=== PATIENT | male | born 1935 | race Caucasian/White ===

== ENCOUNTER 2016-11-17 12:51 | Emergency (ER) | payer MEDICARE, OTHER ==
[2016-11-17 13:02] VITALS: BP 162/80
--- NOTE | 2016-11-17 13:57 | UC ---
Laceration HPI - HPI Summary HPI Summary: ABOUT 2 HOURS AGO PT TRIPPED WHILE OUTSIDE AND STRUCK RIGHT RELIGIOUS ON THE GROUND. HAS A SMALL LACERATION. NO LOC. DENIES ANY GUNDERSON, VISUAL DISTURBANCE, DIZZINESS OR NAUSEA. HAS ROAD RASH ON RIGHT KNEE BUT DENIES ANY JOINT PAIN. - History Of Current Complaint Chief Complaint: UCLaceration Stated Complaint: FACIAL LAC Time Seen by Provider: 11/17/16 13:36 Hx Obtained From: Patient Laceration Location: Face Mechanism Of Injury: Blunt Trauma Onset/Duration: Sudden Onset, Still Present Severity: Mild Pain Intensity: 2 Pain Scale Used: 0-10 Numeric - Allergies/Home Medications Allergies/Adverse Reactions: Allergies Allergy/AdvReac Type Severity Reaction Status Date / Time No Known Allergies Allergy Verified 11/10/12 07:32 PMH/Surg Hx/FS Hx/Imm Hx Previously Healthy: Yes - Surgical History Surgical History: Yes Surgery Procedure, Year, and Place: 1980 FX LEFT LOWER LEG- [facility] [place]. 2000 LEFT INGUINAL HERNIA- [facility]. TONSILS CHILD- [facility]. APPENDECTOMY [facility]ILD-[facility] - Family History Known Family History: Negative: Hypertension, Diabetes - Social History Alcohol Use: None Substance Use Type: None Smoking Status (MU): Former Smoker Review of Systems Constitutional: Negative Skin: Other - LACERATION RIGHT RELIGIOUS, ABRASION RIGHT KNEE Respiratory: Negative Cardiovascular: Negative Gastrointestinal: Negative Neurological: Negative All Other Systems Reviewed And Are Negative: Yes Physical Exam Triage Information Reviewed: Yes Appearance: Well-Appearing, No Pain Distress, Well-Nourished Vital Signs: Initial Vital Signs Temp 98.4 F 11/17/16 12:59 Pulse 64 11/17/16 12:59 Resp 16 11/17/16 12:59 BP 162/80 11/17/16 12:59 Pulse Ox 100 11/17/16 12:59 Vital Signs Reviewed: Yes Eyes: Positive: Conjunctiva Clear Neck: Positive: Supple Respiratory: Positive: No respiratory distress, No accessory muscle use Cardiovascular: Positive: Pulses Normal Abdomen Description: Positive: Soft Musculoskeletal: Positive: No Edema, Other: - NO TENDERNESS OVER ORBITAL BONES Neurological: Positive: Alert Psychological: Positive: Age Appropriate Behavior Skin: Positive: Other - 7MM STELLATE LACERATION RIGHT RELIGIOUS. ABRASION OVER RIGHT KNEE Laceration Repair - Laceration Repair 1 Description: Stellate Laceration Size After Repair: Length (cm) - 0.7CM, Width (mm) - 0MM, Depth (mm) - 1MM Modified For Repair: No Cleansing Completed Via Routine Prep: Yes Closure Material: Skin Adhesive, SteriStrips Laceration Course/Dx - Differential Dx - Laceration/Wound Provider Diagnoses: 1. RIGHT FACIAL LACERATION REPAIR - STERISTRIPS. 2. RIGHT KNEE ABRASION. 3. TDAP BOOSTER Discharge - Discharge Plan Condition: Stable Disposition: HOME Patient Education Materials: Abrasion (ED), Steristrips (ED), Facial Laceration (ED) Referrals: Dontrell Beebe MD [Primary Care Provider] - If Needed Additional Instructions: NO OINTMENTS OR BANDAGES ON TOP OF THE STERI STRIPS. OKAY TO GET WET BRIEFLY IN THE SHOWER BUT DO NOT KEEP WET FOR PROLONGED TIME. SEEK FOLLOW-UP IF YOU DEVELOP SPREADING REDNESS OF THE SKIN, PURULENT DRAINAGE, FEVER, INCREASED PAIN OR ANY OTHER CONCERNING SYMPTOMS. TETANUS IMMUNIZATION GIVEN: You have been given an immunization against tetanus. Please record this in your records. In general, a booster is needed only once every 10 years. The tetanus shot protects against tetanus or "lockjaw," which is a complication of certain wound infections (the tetanus shot cannot protect against the actual infection). The immunization site may become warm and red due to local reaction. If this occurs, apply warm compresses and take aspirin or ibuprofen to reduce inflammation and discomfort. Return for evaluation if the reaction becomes severe.
[2016-11-17] MEDS ORDERED: Tetan/Diph/Pertus SYR(Tdap)* 0.5 ML SYR(BOOSTRIX) use SYR IM ONE (14:06)
== END 2016-11-17 14:35 | disposition home or self-care (01) ==
LOC: UCEAST 12:51
DX: S01.81XA Laceration without foreign body of other part of head, initial encounter (principal); S80.211A Abrasion, right knee, initial encounter; W18.09XA Striking against other object with subsequent fall, initial encounter; Y93.9 Activity, unspecified; Y92.9 Unspecified place or not applicable; Z23 Encounter for immunization; R03.0 Elevated blood-pressure reading, without diagnosis of hypertension; Z87.891 Personal history of nicotine dependence
CPT/HCPCS: 12011; 90471; 90715; 99211; G0463

== ENCOUNTER 2021-02-04 14:53 | Inpatient (IN) ==
[2021-02-04 18:30] LABS: ABS Lymphocytes 0.8 10^3/ul (1.0-4.8); ABS Monocytes 0.5 10^3/ul (0-0.8); ABS Neutrophils 4.9 10^3/ul (1.5-7.7); Eosinophil % 0.7 %; Hematocrit 28 % (42-52); Hemoglobin 9.4 g/dL (14.0-18.0); Lymphocyte % 12.5 %; Mean Corpuscular HGB Conc 34 g/dL (31-36); Mean Corpuscular Hemoglobin 30 pg (27-31); Mean Corpuscular Volume 89 fL (80-94); Mean Platelet Volume 7.1 fL (7.4-10.4); Platelet Count 256 10^3/uL (150-450); Red Blood Count 3.11 10^6 /uL (4.18-5.48); Red Cell Distribution Width 18 % (10-15); White Blood Count 6.3 10^3/uL (3.5-10.8)
[2021-02-04] MEDS ORDERED: cefTRIAXone 1 gm/50 mL NS BAG 1 GM/50 ML BAG IV ONE (18:49)
[2021-02-04 19:01] LABS: ALT 13 U/L (7-52); AST 15 U/L (13-39); Albumin 3.9 g/dL (3.2-5.2); Albumin/Globulin Ratio 1.3 (1-3); Alkaline Phosphatase 365 U/L (34-104); Anion Gap 8 mmol/L (2-11); Blood Urea Nitrogen 43 mg/dL (6-24); CO2 Carbon Dioxide 24 mmol/L (22-32); Calcium 9.1 mg/dL (8.6-10.3); Chloride 109 mmol/L (101-111); EGFR Non-African American 68.6 (>60); Globulin 2.9 g/dL (2-4); Glucose 107 mg/dL (70-100); Potassium 4.4 mmol/L (3.5-5.0); Sodium 141 mmol/L (135-145); Total Protein 6.8 g/dL (6.4-8.9)
[2021-02-04 19:10] LABS: Troponin I 0.03 ng/mL (<0.03)
[2021-02-04] MEDS ORDERED: Iohexol 350 (CONTRAST) 500 ML MDV IV ONE (19:27)
[2021-02-04 22:41] LABS: % Iron Saturation 31 % (15-55); Iron 80 ug/dL (50-212); LDH 182 U/L (140-271); Total Iron Binding Capacity 260 mcg/dL (250-450); Transferrin 186 mg/dL (203-362); Unsaturated Iron Binding < 245 ug/dL
[2021-02-04 22:56] LABS: TSH Ultra Thyroid Stim Horm 3.04 mcIU/mL (0.34-5.60)
[2021-02-04] MEDS ORDERED: Azithromycin 500 mg/250 ml NS 500 MG/250 ML BAG IVPB SCH (23:00)
[2021-02-04 23:07] LABS: Folate > 20.00 ng/mL (5.90-24.80)
[2021-02-04 23:08] LABS: Vitamin B12 558 pg/mL (180-914)
[2021-02-05 01:59] LABS: Troponin I 0.04 ng/mL (<0.03)
[2021-02-05 04:39] LABS: ABS Eosinophils 0.1 10^3/ul (0-0.6); ABS Lymphocytes 0.8 10^3/ul (1.0-4.8); ABS Monocytes 0.4 10^3/ul (0-0.8); ABS Neutrophils 3.5 10^3/ul (1.5-7.7); Eosinophil % 1.1 %; Hematocrit 23 % (42-52); Hemoglobin 7.8 g/dL (14.0-18.0); Lymphocyte % 16.4 %; Mean Corpuscular HGB Conc 34 g/dL (31-36); Mean Corpuscular Hemoglobin 31 pg (27-31); Mean Corpuscular Volume 89 fL (80-94); Mean Platelet Volume 7.3 fL (7.4-10.4); Platelet Count 213 10^3/uL (150-450); Red Blood Count 2.56 10^6 /uL (4.18-5.48); Red Cell Distribution Width 18 % (10-15); White Blood Count 4.8 10^3/uL (3.5-10.8)
[2021-02-05 04:49] LABS: INR 1.27 (0.82-1.09)
[2021-02-05 04:52] LABS: Albumin 3.3 g/dL (3.2-5.2); Anion Gap 6 mmol/L (2-11); CO2 Carbon Dioxide 25 mmol/L (22-32); Calcium 8.6 mg/dL (8.6-10.3); Chloride 109 mmol/L (101-111); Potassium 3.7 mmol/L (3.5-5.0); Sodium 140 mmol/L (135-145)
[2021-02-05 04:58] LABS: ALT 13 U/L (7-52); AST 15 U/L (13-39); Albumin/Globulin Ratio 1.3 (1-3); Alkaline Phosphatase 340 U/L (34-104); Blood Urea Nitrogen 38 mg/dL (6-24); EGFR Non-African American 72.7 (>60); Globulin 2.5 g/dL (2-4); Glucose 103 mg/dL (70-100); Total Protein 5.8 g/dL (6.4-8.9)
[2021-02-05 05:13] LABS: Troponin I 0.04 ng/mL (<0.03)
[2021-02-05 09:04] LABS: PSA Screening Total 5602.069 ng/mL (0-4.000)
[2021-02-05] MEDS ORDERED: Iohexol 300 (CONTRAST) 10 ML SDV IV SCH (09:08)
[2021-02-05 12:27] LABS: Troponin I 0.03 ng/mL (<0.03)
[2021-02-05 15:46] LABS: Body Fluid Source Pleural Fluid
[2021-02-05 16:41] LABS: Urine Appearance Clear; Urine Bacteria Absent (Absent); Urine Bilirubin Negative (Negative); Urine Blood 2+ (Negative); Urine Color Yellow; Urine Glucose Negative (Negative); Urine Ketones Negative (Negative); Urine Nitrite Negative (Negative); Urine Protein 1+(30 mg/dL) (Negative); Urine Red Blood Cell 2+(6-10/hpf) (Absent); Urine Squamous Epithelial Cell Present (Absent); Urine Urobilinogen Negative (Negative); Urine White Blood Cell Trace(0-5/hpf) (Absent)
[2021-02-05 17:03] LABS: Body Fluid Mono 5 %; Body Fluid Other Cells 4
[2021-02-05 17:04] LABS: Urine Specific Gravity > 1.060 (1.002-1.030)
[2021-02-05] MEDS ORDERED: cefTRIAXone 1 gm/50 mL NS BAG 1 GM/50 ML BAG IVPB SCH (20:00)
[2021-02-06 05:45] LABS: ABS Eosinophils 0.1 10^3/ul (0-0.6); ABS Lymphocytes 1.5 10^3/ul (1.0-4.8); ABS Monocytes 0.5 10^3/ul (0-0.8); ABS Neutrophils 4.4 10^3/ul (1.5-7.7); Eosinophil % 1.9 %; Hematocrit 27 % (42-52); Lymphocyte % 22.8 %; Mean Corpuscular HGB Conc 34 g/dL (31-36); Mean Corpuscular Hemoglobin 30 pg (27-31); Mean Corpuscular Volume 89 fL (80-94); Mean Platelet Volume 7.2 fL (7.4-10.4); Nucleated Red Blood Cells % 0.1; Platelet Count 262 10^3/uL (150-450); Red Blood Count 3.01 10^6 /uL (4.18-5.48); Red Cell Distribution Width 18 % (10-15); White Blood Count 6.5 10^3/uL (3.5-10.8)
[2021-02-06 14:11] LABS: Lactate Dehydrogenase, BF 181 U/L
[2021-02-06 15:24] LABS: Fluid Type, Glucose PLEURAL; Fluid Type, Protein, Total PLEURAL; Glucose, BF 114 mg/dL
[2021-02-06] MEDS ORDERED: Enoxaparin 40 MG/0.4 ML SYR SUBCUT SCH (18:00)
[2021-02-07 06:01] LABS: Hematocrit 26 % (42-52); Hemoglobin 8.6 g/dL (14.0-18.0); Mean Corpuscular HGB Conc 34 g/dL (31-36); Mean Corpuscular Hemoglobin 30 pg (27-31); Mean Corpuscular Volume 89 fL (80-94); Mean Platelet Volume 7.1 fL (7.4-10.4); Platelet Count 233 10^3/uL (150-450); Red Blood Count 2.87 10^6 /uL (4.18-5.48); Red Cell Distribution Width 18 % (10-15); White Blood Count 4.5 10^3/uL (3.5-10.8)
[2021-02-07 06:17] LABS: Calcium 8.6 mg/dL (8.6-10.3); EGFR African American 93.4 (>60); EGFR Non-African American 77.2 (>60); Magnesium 2.1 mg/dL (1.9-2.7); Potassium 3.6 mmol/L (3.5-5.0)
[2021-02-07] MEDS ORDERED: Potassium Chloride LIQUID 20 MEQ/15 ML LIQUID PO ONE (07:20)
[2021-02-07 08:19] LABS: ABS Eosinophils 0.2 10^3/ul (0-0.6); ABS Lymphocytes 0.8 10^3/ul (1.0-4.8); ABS Monocytes 0.3 10^3/ul (0-0.8); ABS Neutrophils 3.1 10^3/ul (1.5-7.7); Eosinophil % 4.4 %; Lymphocyte % 17.7 %
[2021-02-07 16:57] LABS: Body Fluid Source Pleural Fluid
[2021-02-07 17:33] LABS: Body Fluid Band 3 %; Body Fluid Mono 8 %
[2021-02-07] MEDS ORDERED: Enoxaparin 40 MG/0.4 ML SYR SUBCUT SCH (18:00)
[2021-02-08 07:55] LABS: Hematocrit 26 % (42-52); Hemoglobin 8.7 g/dL (14.0-18.0)
[2021-02-08 08:09] LABS: Calcium 8.5 mg/dL (8.6-10.3); EGFR African American 93.4 (>60); EGFR Non-African American 77.2 (>60); Potassium 3.8 mmol/L (3.5-5.0)
[2021-02-08 12:10] VITALS: BP 126/54
[2021-02-10 15:57] LABS: Lactate Dehydrogenase, BF 109 U/L
[2021-02-11 10:53] LABS: Fluid Type, Glucose PLEURAL; Glucose, BF 108 mg/dL
[2021-02-11 10:54] LABS: Fluid Type, Protein, Total PLEURAL
== END 2021-02-08 13:24 | disposition home or self-care (01) | DRG 187 ==
LOC: ED 14:53 → MEDTELE 21:01
PROVIDERS: ADMIT Internal Medicine; ATTEND Internal Medicine

== ENCOUNTER 2021-09-15 09:18 | Inpatient (IN) ==
[2021-09-15 11:56] LABS: Magnesium 1.9 mg/dL (1.9-2.7)
[2021-09-15 12:00] LABS: Troponin I 0.03 ng/mL (<0.03)
[2021-09-15] MEDS ORDERED: NS 0.9% 1000 ml BAG 1,000 ML IV SCH ×2 (12:15→15:15)
[2021-09-15 13:07] LABS: Urine Appearance Clear; Urine Bilirubin Negative (Negative); Urine Blood Negative (Negative); Urine Color Yellow; Urine Glucose Negative (Negative); Urine Ketones Negative (Negative); Urine Nitrite Negative (Negative); Urine Protein Negative (Negative); Urine Specific Gravity 1.021 (1.002-1.030); Urine Urobilinogen Negative (Negative)
[2021-09-15 13:15] LABS: Creatine Kinase 112 U/L (10-223)
[2021-09-15] MEDS ORDERED: Ondansetron 4 mg VIAL 2 MG/ML 2 ml VIAL IV PRN (15:15)
[2021-09-15] MEDS ORDERED: Iohexol 300 (CONTRAST) 10 ML SDV IV ONE (15:38)
[2021-09-15] MEDS ORDERED: Gadoteridol (CONTRAST) 279.3 MG/ML 10 ML IV ONE (16:23)
[2021-09-15] MEDS: Enoxaparin 40 MG/0.4 ML SYR SUBCUT SCH (16:44)
[2021-09-16 06:48] LABS: Hematocrit 22 % (42-52); Hemoglobin 7.4 g/dL (14.0-18.0); Mean Corpuscular HGB Conc 33 g/dL (31-36); Mean Corpuscular Hemoglobin 28 pg (27-31); Mean Corpuscular Volume 84 fL (80-94); Mean Platelet Volume 7.4 fL (7.4-10.4); Platelet Count 186 10^3/uL (150-450); Red Blood Count 2.67 10^6 /uL (4.18-5.48); Red Cell Distribution Width 16 % (10-15); White Blood Count 5.8 10^3/uL (3.5-10.8)
[2021-09-16 06:53] LABS: ABS Eosinophils 0.2 10^3/ul (0-0.6); ABS Lymphocytes 0.9 10^3/ul (1.0-4.8); ABS Monocytes 0.5 10^3/ul (0-0.8); ABS Neutrophils 4.2 10^3/ul (1.5-7.7); Lymphocyte % 15.1 %; Nucleated Red Blood Cells % 0.1
[2021-09-16 07:12] LABS: Albumin 3.1 g/dL (3.2-5.2); Albumin/Globulin Ratio 1.2 (1-3); Calcium 10.2 mg/dL (8.6-10.3); Globulin 2.6 g/dL (2-4); Potassium 4.2 mmol/L (3.5-5.0); Total Bilirubin 0.5 mg/dL (0.2-1.0); Total Protein 5.7 g/dL (6.4-8.9); eGFR CKD-EPI 71.2 (>60)
[2021-09-16 07:18] LABS: TSH Ultra Thyroid Stim Horm 2.14 mcIU/mL (0.34-5.60)
[2021-09-16 10:59] LABS: Folate 14.02 ng/mL (5.90-24.80)
[2021-09-16] MEDS: Dexamethasone IV 4 MG/ML VIAL 1 ml VIAL IV SLOW PU SCH (14:09)
[2021-09-16] MEDS: Enoxaparin 40 MG/0.4 ML SYR SUBCUT SCH (16:23)
[2021-09-17] MEDS: Dexamethasone IV 4 MG/ML VIAL 1 ml VIAL IV SLOW PU SCH (09:41)
[2021-09-17] MEDS: Enoxaparin 40 MG/0.4 ML SYR SUBCUT SCH (17:35)
[2021-09-18] MEDS: NS 0.9% 1000 ml BAG 1,000 ML IV SCH ×2 (00:39→20:44)
[2021-09-18] MEDS: Dexamethasone IV 4 MG/ML VIAL 1 ml VIAL IV SLOW PU SCH (07:39)
[2021-09-18 08:33] LABS: Hematocrit 22 % (42-52); Hemoglobin 7.4 g/dL (14.0-18.0); Mean Corpuscular HGB Conc 34 g/dL (31-36); Mean Corpuscular Hemoglobin 28 pg (27-31); Mean Corpuscular Volume 83 fL (80-94); Mean Platelet Volume 7.6 fL (7.4-10.4); Platelet Count 205 10^3/uL (150-450); Red Cell Distribution Width 16 % (10-15); White Blood Count 10.2 10^3/uL (3.5-10.8)
[2021-09-18 09:46] LABS: RBC Morphology Normal (Normal)
[2021-09-18 09:47] LABS: ABS Eosinophils 0.1 10^3/ul (0-0.6); ABS Monocytes 0.7 10^3/ul (0-0.8); ABS Neutrophils 8.5 10^3/ul (1.5-7.7); Eosinophil % 0.5 %; Nucleated Red Blood Cells % 0.2
[2021-09-18 12:24] LABS: % Iron Saturation 32 % (14 - 50); Total Iron Binding Capacity 168 mcg/dL (250 - 400)
[2021-09-18] MEDS: Enoxaparin 40 MG/0.4 ML SYR SUBCUT SCH (17:44)
[2021-09-19 08:55] VITALS: BP 120/51
[2021-09-19] MEDS: Dexamethasone IV 4 MG/ML VIAL 1 ml VIAL IV SLOW PU SCH (09:41)
== END 2021-09-19 11:30 | disposition home or self-care (01) | DRG 723 ==
LOC: ED 09:18 → EDHOLD 09:18 → MEDTELE 20:55
PROVIDERS: ADMIT Internal Medicine Hematology & Oncology; ATTEND Internal Medicine Hematology & Oncology

== ENCOUNTER 2021-10-06 17:32 | Observation (INO) ==
[2021-10-06] MEDS ORDERED: Lactated Ringers 1000 ml BAG 1,000 ML IV ONE (17:43)
[2021-10-06 18:34] LABS: Hematocrit 24 % (42-52); Hemoglobin 7.8 g/dL (14.0-18.0); Mean Corpuscular HGB Conc 33 g/dL (31-36); Mean Corpuscular Hemoglobin 28 pg (27-31); Mean Corpuscular Volume 85 fL (80-94); Red Blood Count 2.78 10^6 /uL (4.18-5.48); Red Cell Distribution Width 18 % (10-15); White Blood Count 6.2 10^3/uL (3.5-10.8)
[2021-10-06 18:39] LABS: ALT 10 U/L (7-52); AST 35 U/L (13-39); Albumin 3.2 g/dL (3.2-5.2); Albumin/Globulin Ratio 1.2 (1-3); Alkaline Phosphatase 151 U/L (35-149); Anion Gap 8 mmol/L (2-11); Blood Urea Nitrogen 66 mg/dL (6-24); C Reactive Protein 62.69 mg/L (<8.01); CO2 Carbon Dioxide 26 mmol/L (22-32); Calcium 11.9 mg/dL (8.6-10.3); Chloride 105 mmol/L (101-111); Globulin 2.6 g/dL (2-4); Glucose 110 mg/dL (70-100); Potassium 4.3 mmol/L (3.5-5.0); Sodium 139 mmol/L (135-145); Total Protein 5.8 g/dL (6.4-8.9); eGFR CKD-EPI 48.8 (>60)
[2021-10-06 18:44] LABS: Troponin I 0.04 ng/mL (<0.03)
[2021-10-06 19:24] LABS: TSH Ultra Thyroid Stim Horm 1.75 mcIU/mL (0.34-5.60)
[2021-10-06 19:42] LABS: ABS Eosinophils 0.1 10^3/ul (0-0.6); ABS Lymphocytes 0.7 10^3/ul (1.0-4.8); ABS Monocytes 0.2 10^3/ul (0-0.8); ABS Neutrophils 5.1 10^3/ul (1.5-7.7); Eosinophil % 1.1 %; Lymphocyte % 11.8 %; Mean Platelet Volume 7.6 fL (7.4-10.4); Nucleated Red Blood Cells % 0.1; Platelet Count 84 10^3/uL (150-450)
[2021-10-07] MEDS ORDERED: Morphine 2 MG/ML SYRINGE IV PRN (17:06)
[2021-10-07] MEDS ORDERED: Atropine 1% (ORAL/SL) 15 ML BTL SL PRN (17:06)
[2021-10-07] MEDS ORDERED: LORazepam 2 mg VIAL 1 ml IV PUSH PRN (17:06)
[2021-10-07] MEDS ORDERED: Ondansetron 4 mg VIAL 2 MG/ML 2 ml VIAL IV PRN (17:06)
[2021-10-07] MEDS ORDERED: Lorazepam PYXIS KEY PRN (17:17)
[2021-10-08 00:03] VITALS: BP 131/79
== END 2021-10-08 15:15 | disposition hospice, home (50) ==
LOC: MEDTELE 17:32 → ED 17:32 → SUATTDRO 22:43 → MEDTELE 23:56
PROVIDERS: ADMIT Internal Medicine; ATTEND Internal Medicine